=== PATIENT | female | born 1970 | race Caucasian/White ===

== ENCOUNTER 2017-09-29 12:31 | Emergency (ER) | payer OTHER ==
[2017-09-29 12:47] VITALS: BP 110/88; PULSE 96; TEMP 98.5; BMI 37.0
--- NOTE | 2017-09-29 12:57 | PDOC ---
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 Range of motion is intact and sensation intact Occurred: reports: just prior to arrival Severity: reports: mild Pain Location: reports: upper extremity (right) Method of Injury: Yes: direct blow Associated Symptoms (Fall): denies symptoms Past History - Travel Traveled outside of the country in the last 30 days: No Close contact w/someone who was outside of country & ill: No - Past Medical History Allergies/Adverse Reactions: Allergies Allergy/AdvReac Type Severity Reaction Status Date / Time Sulfa (Sulfonamide Allergy Hives Verified 09/29/17 12:41 Antibiotics) Home Medications: Ambulatory Orders NK [No Known Home Medication] 09/29/17 COPD: No Diabetes: Yes HTN: Yes Hypercholesterolemia: Yes - Surgical History Abdominal Surgery: Yes (hernia) - Suicide/Smoking/Psychosocial Hx Smoking History: Never smoked Have you smoked in the past 12 months: No Information on smoking cessation initiated: No Hx Alcohol Use: No Drug/Substance Use Hx: No Trauma Specific PMHX - Complaint Specific PMHX Back Injury: No Neck Injury: No Review of Systems - Review of Systems Able to Perform ROS?: Yes Is the patient limited Grenadian proficient: Yes Constitutional: Yes: Symptoms Reported, See HPI. No: Fever, Malaise HEENTM: No: Symptoms Reported : No: Symptoms Reported Musculoskeletal: Yes: Symptoms Reported Integumentary: Yes: Symptoms Reported, See HPI, Other (use it laceration/flap laceration) Neurological: Yes: Symptoms reported All Other Systems: Reviewed and Negative *Physical Exam - Vital Signs Last Vital Signs Temp Pulse Resp BP Pulse Ox 98.5 F 96 H 20 110/88 97 09/29/17 12:41 09/29/17 12:41 09/29/17 12:41 09/29/17 12:41 09/29/17 12:41 - Physical Exam General Appearance: Yes: Nourished, Appropriately Dressed HEENT: positive: [place], Normal ENT Inspection Neck: positive: Supple. negative: Tender Respiratory/Chest: positive: Lungs Clear Gastrointestinal/Abdominal: positive: Soft Extremity: positive: Normal Capillary Refill, Normal Inspection, Normal Range of Motion (strong flexion and extension against resistance both PIP and DIP. Sensation intact distal digit.) Integumentary: positive: Dry, Warm, Other (2cm flap lac to PIP right index finger. 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 Finger flap laceration at PIP, repaired splinted and patient will follow up with PCP for suture removal and return to work clearance *DC/Admit/Observation/Transfer Diagnosis at time of Disposition: Finger laceration Qualifiers: Encounter type: initial encounter Finger: index finger Damage to nail status: without damage Foreign body presence: without foreign body Laterality: right Qualified Code(s): S61.210A - Laceration without foreign body of right index finger without damage to nail, initial encounter - Discharge Dispostion Disposition: HOME Condition at time of disposition: Stable Admit: No - Referrals - Patient Instructions Printed Discharge Instructions: DI for Laceration Repair Additional Instructions: Rest, elevate, avoid strenuous activity or heavy lifting until sutures are removed Leave dressing on for the next 24 hours, Then may remove dressing gently and wash area with soap and water. Reapply bacitracin ointment and dressing daily for the next 5 days On day #6 keep the wound protected and cover as needed until sutures are removed allowing wound to start to dry May use Tylenol or Motrin for pain relief Suture removal in :10-14 Days - Post Discharge Activity Forms/Work/School Notes: Back to Work
== END 2017-09-29 13:52 | disposition home or self-care (01) ==
LOC: JERFT 12:31
PROC: 0HQFXZZ Repair Right Hand Skin, External Approach (ICD-10-PCS; principal; 2017-09-29)
PROC: 2W3JX1Z Immobilization of Right Finger using Splint (ICD-10-PCS; 2017-09-29)
DX: S61.210A Laceration without foreign body of right index finger without damage to nail, initial encounter (principal); W26.8XXA Contact with other sharp object(s), not elsewhere classified, initial encounter; Y93.89 Activity, other specified; Y92.239 Unspecified place in hospital as the place of occurrence of the external cause; Y99.0 Civilian activity done for income or pay
CPT/HCPCS: 73140-TC-RT; 99281-25